=== PATIENT | male | born 1985 | race American Indian/Alaskan Native ===

== ENCOUNTER 2017-08-16 18:43 | Emergency (ER) | payer OTHER ==
[2017-08-16] MEDS ORDERED: FLEXERIL PO ONE (23:09)
[2017-08-16] MEDS ORDERED: NORCO 5/325 PO ONE (23:09)
[2017-08-16] MEDS ORDERED: MOTRIN PO ONE (23:09)
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
[2017-08-17 00:59] VITALS: BP 149/94
== END 2017-08-17 01:01 | disposition home or self-care (01) ==
LOC: ED 18:43
DX: M54.2 Cervicalgia (principal); M54.6 Pain in thoracic spine; V89.2XXA Person injured in unspecified motor-vehicle accident, traffic, initial encounter; Y93.89 Activity, other specified; Y92.89 Other specified places as the place of occurrence of the external cause; Y99.8 Other external cause status
CPT/HCPCS: 72040; 72070; 99283

== ENCOUNTER 2017-11-08 17:07 | Emergency (ER) | payer SELFPAY ==
[2017-11-08 18:10] VITALS: BP 106/73
== END 2017-11-09 00:34 | disposition left against medical advice (07) ==
LOC: ED 17:07
DX: R21 Rash and other nonspecific skin eruption (principal); Z53.21 Procedure and treatment not carried out due to patient leaving prior to being seen by health care provider

== ENCOUNTER 2018-12-26 16:52 | Emergency (ER) | payer OTHER ==
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
[2018-12-26 17:06] VITALS: BP 124/74
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
== END 2018-12-26 21:56 | disposition home or self-care (01) ==
LOC: ED 16:52
DX: M79.602 Pain in left arm (principal); M54.5 Low back pain; V89.2XXA Person injured in unspecified motor-vehicle accident, traffic, initial encounter; Y93.89 Activity, other specified; Y92.488 Other paved roadways as the place of occurrence of the external cause; Y99.8 Other external cause status
CPT/HCPCS: 72040; 72100; 99283

== ENCOUNTER 2021-09-08 08:43 | Emergency (ER) | payer BC ==
[2021-09-08 08:50] VITALS: BP 159/78
[2021-09-08] MEDS ORDERED: SODIUM CHLORIDE 0.9% 1000 ML 1,000 ML IV ONE (09:34)
[2021-09-08] MEDS ORDERED: KETOROLAC 30 MG/1 ML INJ IV ONE (09:34)
--- NOTE | 2021-09-08 09:39 | Emergency Department Report ---
ED Abdominal Pain HPI - General Chief Complaint: Abdominal Pain Stated Complaint: abdominal pain PUI?: No Time Seen by Provider: 09/08/21 08:53 Source: patient Mode of arrival: Ambulatory Limitations: No Limitations - History of Present Illness Initial Comments: 36 year old male presents to ED with complaints of abdominal pain. Patient states that he has been having pain in abdomen for over 1 mth. He states the pain has been migratory throughout the entire abdomen, but last night it was periumbilical, and currently it is in his lower abdomen and bilateral groin area. He states that the pain has been constant and sometimes radiates into his back. He reports associated testicular pain with it. He states that he has been to urgent care twice for his pain. He states that both time to treat him with antibiotics, most recent being doxycycline for "infection". Patient states that he has taken antibiotics both times and he still continues to have pain. He states that he was also prescribed Tylenol 3 for pain which when he takes it it does help, but he states that he does not want to take it too often because he is concerned that it may cause him to be constipated. Patient states that he has had couple episodes of nausea and vomiting in the past mth, but related that to him drinking alcohol. He states that he did have diarrhea once last night and once this morning. He denies any dysuria, penile discharge, hematuria, melena, hematochezia, fever or chills. Denies any history of abdominal surgeries. He also states that has been having pain in his chest since yesterday. When asked to show the location of his chest pain he points to his epigastric area, and his right and left lateral rib areas. He reports no shortness of breath, cough, wheezing, or any additional symptoms. Patient states that he drinks occasionally. He denies any illicit drug use. MD Complaint: abdominal pain -: month(s) - Related Data Previous Rx's Medication Instructions Recorded Last Taken Type Albuterol Mdi (or & Nicu Only) 2 puff IH QID PRN #1 inh 08/22/13 Unknown Rx [ProAir HFA Inhaler] Prednisone 20 mg PO QDAY #5 tablet 08/22/13 Unknown Rx Cyclobenzaprine HCl [Flexeril 5 MG 5 mg PO TID PRN #21 tab 05/06/16 Unknown Rx TAB] Meloxicam 7.5 mg PO QAM #5 tablet 08/17/17 Unknown Rx methOCARBAMOL [Robaxin TAB] 500 mg PO TID #15 tab 12/26/18 Unknown Rx Ketorolac [Toradol] 10 mg PO Q6H PRN #20 tablet 09/08/21 Unknown Rx Allergies Allergy/AdvReac Type Severity Reaction Status Date / Time No Known Allergies Allergy Verified 11/08/17 18:08 ED Review of Systems ROS: Stated complaint: abdominal pain Other details as noted in HPI Comment: All other systems reviewed and negative Constitutional: denies: chills, fever Eyes: denies: eye pain, eye discharge, vision change ENT: denies: ear pain, throat pain Respiratory: denies: cough, shortness of breath, SOB with exertion, SOB at rest, wheezing Cardiovascular: denies: chest pain, palpitations Endocrine: no symptoms reported Gastrointestinal: abdominal pain, nausea, vomiting, diarrhea. denies: hematochezia Genitourinary: denies: urgency, dysuria, frequency, hematuria, discharge, testicular pain, testicular mass Musculoskeletal: back pain. denies: joint swelling, arthralgia Skin: denies: rash, lesions, change in color, change in hair/nails, pruritus Neurological: denies: headache, weakness, numbness, paresthesias, confusion, abnormal gait, vertigo Psychiatric: as per HPI. denies: anxiety, depression, auditory hallucinations, visual hallucinations, homicidal thoughts, suicidal thoughts Hematological/Lymphatic: denies: easy bleeding, easy bruising ED Past Medical Hx - Social History Smoking Status: Never Smoker Substance Use Type: None - Medications Home Medications: Home Medications Medication Instructions Recorded Confirmed Last Taken Type Albuterol Mdi (or & Nicu Only) 2 puff IH QID PRN #1 inh 08/22/13 Unknown Rx [ProAir HFA Inhaler] Prednisone 20 mg PO QDAY #5 tablet 08/22/13 Unknown Rx Cyclobenzaprine HCl [Flexeril 5 MG 5 mg PO TID PRN #21 tab 05/06/16 Unknown Rx TAB] Meloxicam 7.5 mg PO QAM #5 tablet 08/17/17 Unknown Rx methOCARBAMOL [Robaxin TAB] 500 mg PO TID #15 tab 12/26/18 Unknown Rx Ketorolac [Toradol] 10 mg PO Q6H PRN #20 tablet 09/08/21 Unknown Rx ED Physical Exam - General Limitations: No Limitations General appearance: alert, in no apparent distress, anxious - Head Head exam: Present: atraumatic, normocephalic, normal inspection - Neck Neck exam: Present: normal inspection, full ROM - Respiratory Respiratory exam: Present: normal lung sounds bilaterally. 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 Absent: urethral discharge, scrotal swelling, vertical testicular lie, circumcision External exam: Present: normal external exam - Back Exam Back exam: Present: normal inspection, full ROM - Neurological Exam Neurological exam: Present: alert, oriented X3, CN II-XII intact, normal gait - Psychiatric Psychiatric exam: Present: normal affect, normal mood - Skin Skin exam: Present: intact ED Course Vital Signs 09/08/21 08:49 Temperature 98.5 F Pulse Rate 67 Respiratory 16 Rate Blood Pressure 159/78 [Right] O2 Sat by Pulse 96 Oximetry ED Medical Decision Making - Lab Data Result diagrams: 09/08/21 09:50 09/08/21 09:47 - Radiology Data Radiology results: report reviewed Patient: CHRIS AGUIRRE MR# : [id number] : 1985 Acct:[id number] Age/Sex: 36 / M ADM Date: 09/08/21 Loc: ED Attending Dr: Ordering Physician: RUMA BROWN Date of Service: 09/08/21 Procedure(s): XR chest routine 2V Accession Number(s): [id number] cc: RUMA BROWN Fluoro Time In Minutes: CHEST 2 VIEWS INDICATION: chest pain. COMPARISON: None FINDINGS: Support devices: None. Heart: Within normal limits. Lungs/pleura: No acute air space or interstitial disease. No pneumothorax. Additional findings: None. IMPRESSION: No acute findings. Signer Name: Cornelio Joseph Jr, MD Signed: 09/08/2021 10:03 AM Workstation Name: [id number] Transcribed By: TTR Dictated By: CORNELIO JOSEPH JR, MD Electronically Authenticated By: CORNELIO JOSEPH JR, MD Signed Date/Time: 09/08/21 1003 DD/ 1002 Patient: CHRIS AGUIRRE MR# : [id number] : 1985 Acct:[id number] Age/Sex: 36 / M ADM Date: 09/08/21 Loc: ED Attending Dr: Ordering Physician: RUMA BROWN Date of Service: 09/08/21 Procedure(s): US testicular doppler comp Accession Number(s): [id number] cc: RUMA BROWN ULTRASOUND SCROTUM INDICATION: Unspecified testicular pain. COMPARISON None available. FINDINGS: RIGHT TESTICLE: 4.1 x 2.0 x 2.7 cm. Normal echogenicity. Normal color flow. No solid or cystic lesions. RIGHT EPIDIDYMIS: There is a small amount of fluid around the right epididymis without other significant abnormalities. LEFT TESTICLE: 4.2 x 2.0 x 2.6 cm. Normal echogenicity. Normal color flow. No solid or cystic lesions. LEFT EPIDIDYMIS: A simple 4 mm cyst is seen in the left epididymis with a small amount of surrounding fluid. HYDROCELE: None seen. VARICOCELE: None seen. ADDITIONAL FINDINGS: None. IMPRESSION: 1. No acute abnormality of the scrotum or testicles. 2. Small amount of fluid surrounding each epididymis with a simple left epid idymal cyst. Signer Name: Dustin Back MD Signed: 09/08/2021 10:50 AM Workstation Name: [id number] Transcribed By: LOREN Dictated By: Dustin Back MD Electronically Authenticated By: Dustin Back MD Signed Date/Time: 09/08/21 1050 DD/ 1048 TD/TT: TD/TT: - Medical Decision Making 1107: It was reported to me that patient was refusing CT abdomen and pelvis with contrast. I went and spoke with patient and he states he does not want the contrast because he believes its poison and he does not want that in his body. He states he has had IV dye in past and it made him it made "him feel bad" but he did not have an allergic reaction like rash, swelling, or difficulty breath ing. Informed patient that typically the CT with IV dye can give some more details that the one without contrast and I would rather him have the one with IV dye than the one without given his abdominal pain. But patient still refused and so order was changed to CT without constrast. Patient also refused IV fluids and IV meds. All labs reviewed other than elevated T bili, labs unremarkable. CT abd and pelvis non contrast shows 3mm renal stone without obstruction but otherwise unremarkable. Testicular US Small amount of fluid surrounding each epididymis with a simple left epididymal cyst. Patient currently resting comfortably , currently on his phone, he is not in any significant distress. His not toxic or ill appearing. He is hemodynamically stable. Discussed all results with patient. Exact cause of his symptoms at this time unclear but he will be given referral to GI and Urology for further evaluation. There is no indication for further testing, admission or emergent specialist consult at this time. Pt expressed understanding of instructions. Pt was stable at time of dc. - Differential Diagnosis appendicitis, torsion, epididymitis Critical care attestation.: If time is entered above; I have spent that time in minutes in the direct care of this critically ill patient, excluding procedure time. ED Disposition Clinical Impression: Abdominal pain, Testicular pain, unspecified, Renal stone, Nonspecific chest pain Disposition: 01 HOME / SELF CARE / HOMELESS Is pt being admited?: No Does the pt Need Aspirin: No Condition: Stable Instructions: Kidney Stones, [id number], Abdominal Pain, Adult, [id number], Nonspecific Chest Pain, Adult, [id number], Testicular Self-Exam Additional Instructions: I recommend following up with PCP/GI specialist and urologist listed on your discharge instructions for further evaluatoin of your symptoms. You T bilirubin was elevated at 3.6, exact cause of it at this time unclear but you need to follow-up with PCP and or GI specialist to keep monitoring it. Take the toradol as prescribed for pain. Return to ED if worse. Prescriptions: Ketorolac [Toradol] 10 mg PO Q6H PRN #20 tablet PRN Reason: Pain Referrals: [facility] [Provider Group] - 3-5 Days [facility] [Provider Group] - 3-5 Days CASI CAMARENA MD [Staff Physician] - 3-5 Days Forms: Work/School Release Form(ED) Time of Disposition: 12:47 Print Language: GRENADIAN
--- NOTE | 2021-09-08 10:07 | XRay Report ---
CHEST 2 VIEWS INDICATION: chest pain. COMPARISON: None FINDINGS: Support devices: None. Heart: Within normal limits. Lungs/pleura: No acute air space or interstitial disease. No pneumothorax. Additional findings: None. IMPRESSION: No acute findings. Signer Name: Cornelio Joseph Jr, MD Signed: 09/08/2021 10:03 AM Workstation Name: [id number]
[2021-09-08 10:26] LABS: Basophils % (Auto) 0.7 % (0.0-1.8); Eosinophils % (Auto) 0.7 % (0.0-4.3); Hematocrit 44.1 % (35.5-45.6); Hemoglobin 14.7 gm/dl (11.8-15.2); Lymphocytes # (Auto) 2.1 K/mm3 (1.2-5.4); Lymphocytes % (Auto) 39.7 % (13.4-35.0); Mean Corpuscular HGB Conc 33 % (32-34); Mean Corpuscular Volume 96 fl (84-94); Monocytes # (Auto) 0.3 K/mm3 (0.0-0.8); Monocytes % (Auto) 5.5 % (0.0-7.3); Platelet Count 199 K/mm3 (140-440); Red Blood Count 4.59 M/mm3 (3.65-5.03); Red Cell Distribution Width 11.7 % (13.2-15.2)
[2021-09-08 10:41] LABS: Alanine Aminotransferase 17 units/L (7-56); Albumin 4.7 g/dL (3.9-5); BUN/Creatinine Ratio 18; Blood Urea Nitrogen 16 mg/dL (9-20); Calcium 9.9 mg/dL (8.4-10.2); Hemolysis Index 11
--- NOTE | 2021-09-08 10:55 | Ultrasound Report ---
ULTRASOUND SCROTUM INDICATION: Unspecified testicular pain. COMPARISON None available. FINDINGS: RIGHT TESTICLE: 4.1 x 2.0 x 2.7 cm. Normal echogenicity. Normal color flow. No solid or cystic lesion s. RIGHT EPIDIDYMIS: There is a small amount of fluid around the right epididymis without other signific ant abnormalities. LEFT TESTICLE: 4.2 x 2.0 x 2.6 cm. Normal echogenicity. Normal color flow. No solid or cystic lesions . LEFT EPIDIDYMIS: A simple 4 mm cyst is seen in the left epididymis with a small amount of surrounding fluid. HYDROCELE: None seen. VARICOCELE: None seen. ADDITIONAL FINDINGS: None. IMPRESSION: 1. No acute abnormality of the scrotum or testicles. 2. Small amount of fluid surrounding each epididymis with a simple left epididymal cyst. Signer Name: Dustin Back MD Signed: 09/08/2021 10:50 AM Workstation Name: [id number]
[2021-09-08] MEDS ORDERED: KETOROLAC 10 MG TAB PO ONE (11:14)
--- NOTE | 2021-09-08 11:50 | Cat Scan Report ---
CT ABDOMEN AND PELVIS WITHOUT CONTRAST HISTORY: GENERALIZED ABDOMINAL PAIN . COMPARISON: None. TECHNIQUE: CT images of the abdomen and pelvis were obtained without administration of intravenous co ntrast. All CT scans at this location are performed using CT dose reduction for ALARA by means of au tomated exposure control. FINDINGS: Lungs/bones: Lung bases are clear Abdomen/pelvis: Within limits of a noncontrast examination the liver, spleen, adrenal glands, pancre as, gallbladder and upper GI tract appear normal. There is a nonobstructing right renal stone measuri ng 3 mm. No bowel obstruction is seen. No free air is identified. Appendix appears normal. Ureters ar e difficult to follow throughout their course. No acute bone findings IMPRESSION: 1. Nonobstructing right renal stone. No acute findings are seen. Signer Name: Grupo Cheng MD Signed: 09/08/2021 11:46 AM Workstation Name: [id number]
[2021-09-08 12:31] LABS: Bilirubin,Urine NEG (Negative); Blood,Urine NEG (Negative); Color,Urine Yellow (Yellow); Mucus,Urine FEW /HPF; Protein,Urine <15 mg/dL mg/dL (Negative)
[2021-09-08 12:45] LABS: RBC,Urine < 1.0 /HPF (0.0-6.0)
== END 2021-09-08 12:56 | disposition home or self-care (01) ==
LOC: ED 08:43
DX: N20.0 Calculus of kidney (principal); R07.89 Other chest pain; N50.819 Testicular pain, unspecified
CPT/HCPCS: 36415; 71046; 74176; 80053; 81001; 83690; 85025; 93975; 99284; J1885; J7030; Q0162

== ENCOUNTER 2021-10-12 01:42 | Emergency (ER) | payer BC ==
[2021-10-12] MEDS ORDERED: ONDANSETRON 4 MG/2 ML INJ IV ONE ×2 (01:47→01:51)
[2021-10-12] MEDS ORDERED: HYDROmorphone 1 MG/1 ML INJ IV ONE ×3 (01:47→02:04)
[2021-10-12] MEDS ORDERED: TETANUS,DIPH,PERTUSS(ACELL) VACCINE 0.5 ML SYRINGE IM ONE (01:47)
[2021-10-12] MEDS ORDERED: SODIUM CHLORIDE 0.9% 1000 ML 1,000 ML IV ONE (01:48)
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
[2021-10-12] MEDS ORDERED: HYDROmorphone 2 MG/1 ML INJ IV ONE (02:04)
[2021-10-12] MEDS ORDERED: diphenhydrAMINE 50 MG/ML VIAL IV ONE ×2 (02:04→02:05)
[2021-10-12 02:28] LABS: Basophils % (Auto) 0.5 % (0.0-1.8); Eosinophils % (Auto) 0.3 % (0.0-4.3); Hematocrit 42.9 % (35.5-45.6); Hemoglobin 14.1 gm/dl (11.8-15.2); Lymphocytes # (Auto) 2.1 K/mm3 (1.2-5.4); Lymphocytes % (Auto) 32.9 % (13.4-35.0); Mean Corpuscular HGB Conc 33 % (32-34); Mean Corpuscular Volume 95 fl (84-94); Monocytes # (Auto) 0.3 K/mm3 (0.0-0.8); Platelet Count 237 K/mm3 (140-440); Red Blood Count 4.51 M/mm3 (3.65-5.03); Red Cell Distribution Width 11.8 % (13.2-15.2)
[2021-10-12 02:31] LABS: BUN/Creatinine Ratio 19; Blood Urea Nitrogen 19 mg/dL (9-20); Calcium 9.2 mg/dL (8.4-10.2); Hemolysis Index 4
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
[2021-10-12] MEDS ORDERED: LORazepam 2 MG/ML VIAL IV ONE (03:26)
[2021-10-12 06:25] VITALS: BP 123/70
== END 2021-10-12 08:08 | disposition hospice, inpatient (51) ==
LOC: ED 01:42
DX: S62.398A Other fracture of other metacarpal bone, initial encounter for closed fracture (principal); S61.431A Puncture wound without foreign body of right hand, initial encounter; W34.09XA Accidental discharge from other specified firearms, initial encounter; Y93.89 Activity, other specified; Y92.89 Other specified places as the place of occurrence of the external cause; Y99.8 Other external cause status
CPT/HCPCS: 36415; 73130; 80048; 85025; 90471; 90715; 96361; 96365; 96375; 96376; 99285; J0690; J1170; J1200; J2060; J2405; J7030; Q0162